=== PATIENT | female | born 1945 | race Caucasian/White ===

== ENCOUNTER 2023-09-24 05:06 | Inpatient (IN) | payer OTHER ==
[~2023-09-24] VITALS: Ht 157.5 cm; Wt 52.6 kg
[2023-09-24 05:15] VITALS: BP 190/104; PULSE 75; RESP 16; TEMP 98.5; O2SAT 95
[2023-09-24] MEDS ORDERED: MORPHINE SULFATE 4 MG/ML SYR IVP ONE (05:20)
[2023-09-24] MEDS ORDERED: ONDANSETRON 4 MG/2 ML VIAL IVP ONE ×2 (05:20→11:30)
[2023-09-24 07:14] LABS: BASOPHILS % (AUTO) 0.1 % (0.0-2.0); EOSINOPHILS % (AUTO) 0.3 % (0.0-4.0); HEMATOCRIT 26.4 % (36-48); HEMOGLOBIN 8.7 g/dL (12.0-16.0); LYMPHOCYTES # (AUTO) 0.6 K/uL (2.5-16.5); LYMPHOCYTES % (AUTO) 8.5 % (20.5-51.1); MEAN CORPUSCULAR HEMOGLOBIN 30 pg (27-31); MEAN CORPUSCULAR HGB CONC 33 g/dL (33-37); MEAN CORPUSCULAR VOLUME 90.1 fL (80-94); MONOCYTES # (AUTO) 0.6 K/uL (0.8-1.0); MONOCYTES % (AUTO) 8.5 % (1.7-9.3); NEUTROPHILS % (AUTO) 82.6 % (42.2-75.2); PLATELET COUNT (AUTO) 236 K/uL (140-450); RED BLOOD CELL COUNT(AUTO) 2.92 MIL/uL (4.20-5.40); RED CELL DISTRIBUTION WIDTH 13.8 % (11.6-13.7); WHITE BLOOD COUNT (AUTO) 7.3 K/uL (4.8-10.8)
[2023-09-24 08:00] LABS: ALANINE AMINOTRANSFERASE 14 U/L (12-78); ALBUMIN 2.6 g/dL (3.4-5.0); ALKALINE PHOSPHATASE 86 U/L (50-136); ANION GAP 14.3 (8-16); ASPARTATE AMINOTRANSFERASE 15 U/L (15-37); CALCIUM 7.8 mg/dL (8.5-10.1); CARBON DIOXIDE 27.1 mmol/L (21-32); CHLORIDE 100 mmol/L (98-107); CREATININE 0.9 mg/dL (0.6-1.3); GLUCOSE 144 mg/dL (74-106); LIPASE 23 U/L (16-77); POTASSIUM 3.4 mmol/L (3.5-5.1); SODIUM SERUM 138 mmol/L (136-145); TOTAL BILIRUBIN 0.4 mg/dL (0.0-1.0); TOTAL PROTEIN, SERUM 7.1 g/dL (6.4-8.2); UREA NITROGEN, BLOOD 18 mg/dL (7-18)
[2023-09-24 11:20] LABS: BILIRUBIN,URINE NEGATIVE (NEGATIVE); BLOOD, URINE 2+ (NEGATIVE); COLOR,URINE YELLOW (YELLOW); LEUKOCYTE ESTERASE ,URINE NEGATIVE (NEGATIVE); NITRITE, URINE POSITIVE (NEGATIVE); PH,URINE 6.5 (5.0-9.0); PROTEIN,URINE 2+ (NEGATIVE); UGLUCOSE NEGATIVE (NEGATIVE); UROBILINOGEN,URINE 0.2 EU/dL (0.2 - 1)
[2023-09-24 11:25] LABS: APPEARANCE,URINE HAZY (CLEAR)
[2023-09-24 11:26] LABS: BACTERIA,URINE 1+ /HPF (None Seen); RBC,URINE 20-50 /HPF (0-5); SQUAMOUS EPITHELIAL CELL,UR 0-3 (FEW) /LPF (0-3 (FEW)); WBC,URINE 0-5 /HPF (0-5)
[2023-09-24 11:27] LABS: URINE AMORPHOUS URATE 1+ /HPF (None Seen)
[2023-09-24] MEDS ORDERED: MORPHINE SULFATE 2 MG/ML SYR IVP ONE (11:30)
[2023-09-24] MEDS ORDERED: ONDANSETRON 4 MG/2 ML VIAL ONE (11:30)
[2023-09-24] MEDS: LACTATED RINGERS 1,000 ML IV SCH (11:40)
[2023-09-24 11:50] VITALS: O2SAT 95
[2023-09-24] MEDS: PIPERACILLIN/TAZOBACTAM 2.25 GM in DEXTROSE 5% 50 ML IV SCH ×2 (12:06→21:20)
[2023-09-24] MEDS ORDERED: METOPROLOL 5 MG/5 ML VIAL IVP ONE (12:40)
[2023-09-24] MEDS ORDERED: PIPERACILLIN/TAZOBACTAM 3.375 GM in DEXTROSE 5% 50 ML IV SCH (13:00)
[2023-09-24] MEDS ORDERED: PIPERACILLIN/TAZOBACTAM 2.25 GM VIAL IV ONE ×2 (13:09→20:18)
[2023-09-24] MEDS: MORPHINE SULFATE 4 MG/ML SYR IVP PRN (13:12)
[2023-09-24] MEDS: ONDANSETRON 4 MG/2 ML VIAL IVP PRN (13:13)
[2023-09-24] MEDS ORDERED: DULO60EC1 PO (13:54)
[2023-09-24] MEDS ORDERED: CARV12.5 PO (13:54)
[2023-09-24] MEDS ORDERED: ASCO500T95 PO (13:54)
[2023-09-24] MEDS ORDERED: LOSA-272 PO (13:54)
[2023-09-24] MEDS ORDERED: INSU100S22 SUBQ (13:54)
[2023-09-24] MEDS ORDERED: HYDR-1098 PO (13:54)
[2023-09-24] MEDS ORDERED: HYDR200T65 PO (13:54)
[2023-09-24] MEDS ORDERED: APIX2.5 PO (13:54)
[2023-09-24] MEDS ORDERED: PRAV10TA4 PO (13:54)
[2023-09-24] MEDS ORDERED: NIFE60TE5 PO (13:54)
[2023-09-24] MEDS ORDERED: ASPI-1129 PO (13:54)
[2023-09-24] MEDS ORDERED: hydrALAZINE 25 MG TAB PO SCH ×2 (16:47→21:00)
[2023-09-24] MEDS ORDERED: carvediloL 12.5 MG TAB PO SCH ×2 (16:47→21:00)
[2023-09-24] MEDS ORDERED: NIFEdipine 60 MG TABER PO SCH (16:48)
[2023-09-24] MEDS: MORPHINE SULFATE 2 MG/ML SYR IVP PRN (16:50)
[2023-09-24 20:03] VITALS: O2SAT 96
[2023-09-24] MEDS: ACETAMINOPHEN 325 MG TAB PO PRN (20:13)
[2023-09-24] MEDS: CLONIDINE HYDROCHLORIDE 0.1 MG TAB PO PRN (20:14)
[2023-09-24 21:30] VITALS: BP 165/83; PULSE 87; RESP 18; TEMP 98.3; O2SAT 98
[2023-09-24] MEDS: LOSARTAN 50 MG TAB PO SCH (23:01)
[2023-09-24] MEDS: hydrALAZINE 25 MG TAB PO SCH (23:01)
[2023-09-24] MEDS: INSULIN LANTUS 100 UNITS/ML 10 ML VIAL SUBQ SCH (23:02)
[2023-09-25] VITALS: BP 125/66; PULSE 72; RESP 18; TEMP 98; O2SAT 99
[2023-09-25] MEDS ORDERED: PIPERACILLIN/TAZOBACTAM 2.25 GM VIAL IV ONE ×2 (00:37→04:40)
[2023-09-25] MEDS: PIPERACILLIN/TAZOBACTAM 2.25 GM in DEXTROSE 5% 50 ML IV SCH ×5 (00:45→23:37)
[2023-09-25] MEDS: LACTATED RINGERS 1,000 ML IV SCH ×2 (01:04→09:11)
[2023-09-25] MEDS: ONDANSETRON 4 MG/2 ML VIAL IVP PRN (02:39)
[2023-09-25] MEDS: MORPHINE SULFATE 2 MG/ML SYR IVP PRN ×3 (02:39→18:16)
[2023-09-25 04:00] VITALS: BP 168/82; PULSE 74; RESP 18; TEMP 98; O2SAT 100
[2023-09-25] MEDS: CLONIDINE HYDROCHLORIDE 0.1 MG TAB PO PRN (05:43)
[2023-09-25] MEDS: ACETAMINOPHEN 325 MG TAB PO PRN ×2 (05:44→20:45)
[2023-09-25 08:00] VITALS: BP 123/62; PULSE 68; RESP 17; TEMP 96.9; O2SAT 99
[2023-09-25 08:11] LABS: BASOPHILS % (AUTO) 0.2 % (0.0-2.0); EOSINOPHILS % (AUTO) 0.8 % (0.0-4.0); HEMATOCRIT 23.7 % (36-48); HEMOGLOBIN 7.9 g/dL (12.0-16.0); LYMPHOCYTES # (AUTO) 0.8 K/uL (2.5-16.5); LYMPHOCYTES % (AUTO) 13.4 % (20.5-51.1); MEAN CORPUSCULAR HEMOGLOBIN 30 pg (27-31); MEAN CORPUSCULAR HGB CONC 33 g/dL (33-37); MEAN CORPUSCULAR VOLUME 89.9 fL (80-94); MONOCYTES # (AUTO) 0.6 K/uL (0.8-1.0); MONOCYTES % (AUTO) 10.1 % (1.7-9.3); NEUTROPHILS # (AUTO) 4.2 K/uL (1.8-7.7); NEUTROPHILS % (AUTO) 75.5 % (42.2-75.2); PLATELET COUNT (AUTO) 240 K/uL (140-450); RED BLOOD CELL COUNT(AUTO) 2.64 MIL/uL (4.20-5.40); WHITE BLOOD COUNT (AUTO) 5.6 K/uL (4.8-10.8)
[2023-09-25 08:15] LABS: ALANINE AMINOTRANSFERASE 14 U/L (12-78); ALBUMIN 2.2 g/dL (3.4-5.0); ALKALINE PHOSPHATASE 78 U/L (50-136); ANION GAP 11.1 (8-16); ASPARTATE AMINOTRANSFERASE 13 U/L (15-37); CALCIUM 7.4 mg/dL (8.5-10.1); CARBON DIOXIDE 29.6 mmol/L (21-32); CHLORIDE 102 mmol/L (98-107); GLUCOSE 154 mg/dL (74-106); POTASSIUM 3.7 mmol/L (3.5-5.1); SODIUM SERUM 139 mmol/L (136-145); TOTAL BILIRUBIN 0.4 mg/dL (0.0-1.0); TOTAL PROTEIN, SERUM 6.6 g/dL (6.4-8.2); UREA NITROGEN, BLOOD 16 mg/dL (7-18)
[2023-09-25] MEDS: ASPIRIN 81 MG TAB.CHEW PO SCH (08:56)
[2023-09-25] MEDS: NIFEdipine 60 MG TABER PO SCH (08:56)
[2023-09-25] MEDS: hydrALAZINE 25 MG TAB PO SCH ×2 (08:56→22:03)
[2023-09-25] MEDS: carvediloL 12.5 MG TAB PO SCH (08:57)
[2023-09-25] MEDS: LOSARTAN 50 MG TAB PO SCH ×2 (08:57→22:02)
[2023-09-25] MEDS: HYDROXYCHLOROQUINE 200 MG TAB PO SCH (08:57)
[2023-09-25] MEDS: ENOXAPARIN 40 MG/0.4 ML SYR SUBQ SCH (09:00)
[2023-09-25] MEDS ORDERED: ASPIRIN 81 MG TAB.CHEW PO SCH (09:00)
[2023-09-25] MEDS: MORPHINE SULFATE 4 MG/ML SYR IVP PRN ×2 (12:08→22:26)
[2023-09-25 16:00] VITALS: BP 123/79; PULSE 79; RESP 17; TEMP 97.7; O2SAT 98
[2023-09-25] MEDS ORDERED: DEXTROSE 50% 50 ML SYR IVP PRN (16:20)
[2023-09-25] MEDS: BLOOD GLUCOSE MONITORING 1 DEV DEV FS SCH ×2 (16:30→21:00)
[2023-09-25] MEDS: INSULIN LISPRO SLIDING SCALE 100 UNITS/ML VIAL SUBQ PRN (18:16)
[2023-09-25 20:00] VITALS: PULSE 79; RESP 18; O2SAT 99
[2023-09-25] MEDS: INSULIN LANTUS 100 UNITS/ML 10 ML VIAL SUBQ SCH (21:00)
[2023-09-26 02:05] VITALS: BP 141/79; PULSE 77; RESP 18; TEMP 97.8; O2SAT 98
[2023-09-26] MEDS: HYDROmorphone 1 MG/ML AMP IVP PRN ×2 (02:18→10:14)
[2023-09-26] MEDS: LACTATED RINGERS 1,000 ML IV SCH (03:40)
[2023-09-26] MEDS: MORPHINE SULFATE 4 MG/ML SYR IVP PRN (05:41)
[2023-09-26] MEDS: PIPERACILLIN/TAZOBACTAM 2.25 GM in DEXTROSE 5% 50 ML IV SCH ×3 (06:11→18:33)
[2023-09-26] MEDS: ACETAMINOPHEN 325 MG TAB PO PRN (06:22)
[2023-09-26] MEDS: BLOOD GLUCOSE MONITORING 1 DEV DEV FS SCH ×4 (06:29→22:15)
[2023-09-26] MEDS: INSULIN LISPRO SLIDING SCALE 100 UNITS/ML VIAL SUBQ PRN ×3 (06:32→22:21)
[2023-09-26 07:01] LABS: BASOPHILS % (AUTO) 0.2 % (0.0-2.0); EOSINOPHILS % (AUTO) 0.7 % (0.0-4.0); HEMATOCRIT 26.2 % (36-48); HEMOGLOBIN 8.6 g/dL (12.0-16.0); LYMPHOCYTES # (AUTO) 0.9 K/uL (2.5-16.5); LYMPHOCYTES % (AUTO) 12.5 % (20.5-51.1); MEAN CORPUSCULAR HEMOGLOBIN 29 pg (27-31); MEAN CORPUSCULAR HGB CONC 33 g/dL (33-37); MEAN CORPUSCULAR VOLUME 89.7 fL (80-94); MONOCYTES # (AUTO) 0.5 K/uL (0.8-1.0); NEUTROPHILS # (AUTO) 5.5 K/uL (1.8-7.7); NEUTROPHILS % (AUTO) 79.6 % (42.2-75.2); PLATELET COUNT (AUTO) 273 K/uL (140-450); RED BLOOD CELL COUNT(AUTO) 2.92 MIL/uL (4.20-5.40); RED CELL DISTRIBUTION WIDTH 14.3 % (11.6-13.7); WHITE BLOOD COUNT (AUTO) 6.9 K/uL (4.8-10.8)
[2023-09-26 07:26] LABS: ALANINE AMINOTRANSFERASE 13 U/L (12-78); ALBUMIN 2.4 g/dL (3.4-5.0); ALKALINE PHOSPHATASE 89 U/L (50-136); ANION GAP 12.4 (8-16); ASPARTATE AMINOTRANSFERASE 14 U/L (15-37); CARBON DIOXIDE 29.3 mmol/L (21-32); CHLORIDE 101 mmol/L (98-107); GLUCOSE 179 mg/dL (74-106); POTASSIUM 3.7 mmol/L (3.5-5.1); SODIUM SERUM 139 mmol/L (136-145); TOTAL BILIRUBIN 0.4 mg/dL (0.0-1.0); TOTAL PROTEIN, SERUM 7.2 g/dL (6.4-8.2); UREA NITROGEN, BLOOD 15 mg/dL (7-18)
[2023-09-26 08:00] VITALS: BP 170/77; PULSE 76; RESP 17; TEMP 98.6; O2SAT 99
[2023-09-26] MEDS: hydrALAZINE 25 MG TAB PO SCH ×2 (08:54→22:23)
[2023-09-26] MEDS: carvediloL 12.5 MG TAB PO SCH (08:54)
[2023-09-26] MEDS: ASPIRIN 81 MG TAB.CHEW PO SCH (08:55)
[2023-09-26] MEDS: LOSARTAN 50 MG TAB PO SCH ×2 (08:55→09:26)
[2023-09-26] MEDS: NIFEdipine 60 MG TABER PO SCH (08:55)
[2023-09-26] MEDS: ENOXAPARIN 40 MG/0.4 ML SYR SUBQ SCH (09:01)
[2023-09-26] MEDS: HYDROXYCHLOROQUINE 200 MG TAB PO SCH (09:27)
[2023-09-26 10:30] VITALS: BP 152/69; PULSE 84; RESP 18; TEMP 98.2; O2SAT 98
[2023-09-26] MEDS: oxyCODONE/APAP 5/325 MG 1 TAB TAB PO PRN (13:17)
[2023-09-26 13:21] VITALS: BP 125/59; PULSE 82; RESP 18; TEMP 98.5; O2SAT 99
[2023-09-26] MEDS ORDERED: COMPOSITE DRESSING TP PRN (14:25)
[2023-09-26 16:00] VITALS: BP 101/62; PULSE 88; RESP 18; TEMP 98.9; O2SAT 97
[2023-09-26] MEDS: KETOROLAC 30 MG/ML VIAL IVP PRN ×2 (17:29→23:10)
[2023-09-26 20:00] VITALS: BP 128/81; PULSE 81; RESP 18; TEMP 98; O2SAT 98
[2023-09-26] MEDS: DOCUSATE SODIUM 100 MG GELCAP PO SCH (21:08)
[2023-09-26] MEDS: INSULIN LANTUS 100 UNITS/ML 10 ML VIAL SUBQ SCH (22:31)
[2023-09-27] MEDS: PIPERACILLIN/TAZOBACTAM 2.25 GM in DEXTROSE 5% 50 ML IV SCH ×4 (01:12→18:03)
[2023-09-27 04:00] VITALS: BP 122/58; PULSE 84; RESP 18; TEMP 98.3; O2SAT 99
[2023-09-27] MEDS: KETOROLAC 30 MG/ML VIAL IVP PRN ×2 (05:29→20:08)
[2023-09-27] MEDS: BLOOD GLUCOSE MONITORING 1 DEV DEV FS SCH ×4 (07:22→20:21)
[2023-09-27] MEDS: INSULIN LISPRO SLIDING SCALE 100 UNITS/ML VIAL SUBQ PRN ×4 (07:25→20:24)
[2023-09-27 07:28] LABS: BASOPHILS % (AUTO) 0.3 % (0.0-2.0); EOSINOPHILS # (AUTO) 0.1 K/uL (0-0.4); EOSINOPHILS % (AUTO) 1.2 % (0.0-4.0); HEMATOCRIT 24.4 % (36-48); HEMOGLOBIN 8.1 g/dL (12.0-16.0); LYMPHOCYTES # (AUTO) 0.7 K/uL (2.5-16.5); LYMPHOCYTES % (AUTO) 11.7 % (20.5-51.1); MEAN CORPUSCULAR HEMOGLOBIN 30 pg (27-31); MEAN CORPUSCULAR HGB CONC 33 g/dL (33-37); MEAN CORPUSCULAR VOLUME 89.9 fL (80-94); MONOCYTES # (AUTO) 0.4 K/uL (0.8-1.0); MONOCYTES % (AUTO) 5.9 % (1.7-9.3); NEUTROPHILS % (AUTO) 80.9 % (42.2-75.2); PLATELET COUNT (AUTO) 267 K/uL (140-450); RED BLOOD CELL COUNT(AUTO) 2.71 MIL/uL (4.20-5.40); WHITE BLOOD COUNT (AUTO) 6.1 K/uL (4.8-10.8)
[2023-09-27 08:00] VITALS: BP 134/61; PULSE 79; RESP 18; TEMP 98.1; O2SAT 96
[2023-09-27 08:24] LABS: ALANINE AMINOTRANSFERASE 8 U/L (12-78); ALBUMIN 2.1 g/dL (3.4-5.0); ALKALINE PHOSPHATASE 86 U/L (50-136); ANION GAP 11.5 (8-16); ASPARTATE AMINOTRANSFERASE 10 U/L (15-37); CALCIUM 8.1 mg/dL (8.5-10.1); CARBON DIOXIDE 29.8 mmol/L (21-32); CHLORIDE 101 mmol/L (98-107); GLUCOSE 159 mg/dL (74-106); POTASSIUM 3.3 mmol/L (3.5-5.1); SODIUM SERUM 139 mmol/L (136-145); TOTAL BILIRUBIN 0.3 mg/dL (0.0-1.0); TOTAL PROTEIN, SERUM 6.7 g/dL (6.4-8.2); UREA NITROGEN, BLOOD 21 mg/dL (7-18)
[2023-09-27] MEDS ORDERED: POTASSIUM CHLORIDE 10 MEQ TABER PO PRN (08:50)
[2023-09-27] MEDS: hydrALAZINE 25 MG TAB PO SCH ×2 (09:51→20:28)
[2023-09-27] MEDS: ASPIRIN 81 MG TAB.CHEW PO SCH (09:51)
[2023-09-27] MEDS: NIFEdipine 60 MG TABER PO SCH (09:51)
[2023-09-27] MEDS: carvediloL 12.5 MG TAB PO SCH (09:52)
[2023-09-27] MEDS: DOCUSATE SODIUM 100 MG GELCAP PO SCH ×2 (09:52→20:18)
[2023-09-27] MEDS: LOSARTAN 50 MG TAB PO SCH ×2 (09:52→20:29)
[2023-09-27] MEDS: HYDROXYCHLOROQUINE 200 MG TAB PO SCH (09:57)
[2023-09-27] MEDS: ENOXAPARIN 40 MG/0.4 ML SYR SUBQ SCH (09:58)
[2023-09-27] MEDS: oxyCODONE/APAP 5/325 MG 1 TAB TAB PO PRN ×2 (10:46→16:54)
[2023-09-27] MEDS: HYDROmorphone 1 MG/ML AMP IVP PRN (11:56)
[2023-09-27 13:36] LABS: APPEARANCE,URINE CLEAR (CLEAR); BILIRUBIN,URINE NEGATIVE (NEGATIVE); BLOOD, URINE TRACE-I (NEGATIVE); COLOR,URINE YELLOW (YELLOW); LEUKOCYTE ESTERASE ,URINE NEGATIVE (NEGATIVE); NITRITE, URINE POSITIVE (NEGATIVE); PH,URINE 5.5 (5.0-9.0); PROTEIN,URINE 2+ (NEGATIVE); UGLUCOSE NEGATIVE (NEGATIVE); UROBILINOGEN,URINE 0.2 EU/dL (0.2 - 1)
[2023-09-27] MEDS: COMPOSITE DRESSING TP SCH (13:57)
[2023-09-27 14:03] LABS: BACTERIA,URINE 1+ /HPF (None Seen); RBC,URINE 0-5 /HPF (0-5); WBC,URINE 0-5 /HPF (0-5)
[2023-09-27 16:00] VITALS: BP 114/58; PULSE 78; RESP 18; TEMP 97.3; O2SAT 96
[2023-09-27 20:00] VITALS: PULSE 73; RESP 17; O2SAT 96
[2023-09-27] MEDS: INSULIN LANTUS 100 UNITS/ML 10 ML VIAL SUBQ SCH (20:25)
[2023-09-28] MEDS: PIPERACILLIN/TAZOBACTAM 2.25 GM in DEXTROSE 5% 50 ML IV SCH ×4 (00:21→17:20)
[2023-09-28] MEDS: MORPHINE SULFATE 4 MG/ML SYR IVP PRN ×2 (01:46→08:46)
[2023-09-28 04:00] VITALS: BP 110/60; PULSE 77; RESP 18; TEMP 97.6; O2SAT 97
[2023-09-28] MEDS: HYDROmorphone 1 MG/ML AMP IVP PRN ×5 (04:15→22:00)
[2023-09-28 06:42] LABS: BASOPHILS % (AUTO) 0.1 % (0.0-2.0); EOSINOPHILS # (AUTO) 0.1 K/uL (0-0.4); HEMATOCRIT 23.1 % (36-48); HEMOGLOBIN 7.7 g/dL (12.0-16.0); LYMPHOCYTES # (AUTO) 0.8 K/uL (2.5-16.5); LYMPHOCYTES % (AUTO) 13.7 % (20.5-51.1); MEAN CORPUSCULAR HEMOGLOBIN 30 pg (27-31); MEAN CORPUSCULAR HGB CONC 33 g/dL (33-37); MEAN CORPUSCULAR VOLUME 89.4 fL (80-94); MONOCYTES # (AUTO) 0.4 K/uL (0.8-1.0); NEUTROPHILS # (AUTO) 4.3 K/uL (1.8-7.7); NEUTROPHILS % (AUTO) 77.2 % (42.2-75.2); PLATELET COUNT (AUTO) 258 K/uL (140-450); RED BLOOD CELL COUNT(AUTO) 2.59 MIL/uL (4.20-5.40); RED CELL DISTRIBUTION WIDTH 14.3 % (11.6-13.7); WHITE BLOOD COUNT (AUTO) 5.5 K/uL (4.8-10.8)
[2023-09-28] MEDS: BLOOD GLUCOSE MONITORING 1 DEV DEV FS SCH ×4 (06:43→21:58)
[2023-09-28 08:00] VITALS: PULSE 73; RESP 17; O2SAT 96
[2023-09-28 08:21] LABS: ANION GAP 13.1 (8-16); CALCIUM 7.6 mg/dL (8.5-10.1); CARBON DIOXIDE 28.8 mmol/L (21-32); CHLORIDE 104 mmol/L (98-107); CREATININE 1.1 mg/dL (0.6-1.3); GLUCOSE 117 mg/dL (74-106); POTASSIUM 3.9 mmol/L (3.5-5.1); SODIUM SERUM 142 mmol/L (136-145); UREA NITROGEN, BLOOD 25 mg/dL (7-18)
[2023-09-28] MEDS: hydrALAZINE 25 MG TAB PO SCH ×2 (10:04→22:08)
[2023-09-28] MEDS: NIFEdipine 60 MG TABER PO SCH (10:04)
[2023-09-28] MEDS: DOCUSATE SODIUM 100 MG GELCAP PO SCH ×2 (10:04→22:08)
[2023-09-28] MEDS: carvediloL 12.5 MG TAB PO SCH (10:06)
[2023-09-28] MEDS: LOSARTAN 50 MG TAB PO SCH ×2 (10:06→22:09)
[2023-09-28] MEDS: HYDROXYCHLOROQUINE 200 MG TAB PO SCH (10:06)
[2023-09-28] MEDS: ASPIRIN 81 MG TAB.CHEW PO SCH (10:08)
[2023-09-28] MEDS: ENOXAPARIN 40 MG/0.4 ML SYR SUBQ SCH (10:10)
[2023-09-28] MEDS: oxyCODONE/APAP 5/325 MG 1 TAB TAB PO PRN ×2 (11:46→18:57)
[2023-09-28] MEDS: KETOROLAC 30 MG/ML VIAL IVP PRN (11:46)
[2023-09-28 12:00] VITALS: BP 152/70; PULSE 73; RESP 17; TEMP 97.6; O2SAT 96
[2023-09-28] MEDS: COMPOSITE DRESSING TP SCH (13:00)
[2023-09-28 15:11] LABS: ALANINE AMINOTRANSFERASE 14 U/L (12-78); ALKALINE PHOSPHATASE 110 U/L (50-136); ANION GAP 10.7 (8-16); ASPARTATE AMINOTRANSFERASE 15 U/L (15-37); CALCIUM 7.5 mg/dL (8.5-10.1); CHLORIDE 103 mmol/L (98-107); CREATININE 1.1 mg/dL (0.6-1.3); GLUCOSE 186 mg/dL (74-106); POTASSIUM 3.7 mmol/L (3.5-5.1); SODIUM SERUM 140 mmol/L (136-145); TOTAL BILIRUBIN 0.3 mg/dL (0.0-1.0); TOTAL PROTEIN, SERUM 6.4 g/dL (6.4-8.2); UREA NITROGEN, BLOOD 22 mg/dL (7-18)
[2023-09-28] MEDS: INSULIN LISPRO SLIDING SCALE 100 UNITS/ML VIAL SUBQ PRN ×2 (19:06→22:20)
[2023-09-28 20:00] VITALS: BP 166/82; PULSE 73; PULSE 77; RESP 18; TEMP 97.4; O2SAT 100
[2023-09-28] MEDS: LACTULOSE 20 GM/30 ML UDC PO SCH (22:05)
[2023-09-28] MEDS: INSULIN LANTUS 100 UNITS/ML 10 ML VIAL SUBQ SCH (22:21)
[2023-09-28] MEDS: ONDANSETRON 4 MG/2 ML VIAL IVP PRN (22:31)
[2023-09-29] VITALS (7 sets, daily range): BP systolic 120–167; BP diastolic 68–89; PULSE 78–97; RESP 17–18; TEMP 97.4–98.1; O2SAT 94–100
[2023-09-29] MEDS: HYDROmorphone 1 MG/ML AMP IVP PRN ×6 (03:10→20:56)
[2023-09-29] MEDS: ONDANSETRON 4 MG/2 ML VIAL IVP PRN (03:11)
[2023-09-29] MEDS: BLOOD GLUCOSE MONITORING 1 DEV DEV FS SCH ×4 (06:45→20:48)
[2023-09-29 07:23] LABS: BASOPHILS % (AUTO) 0.2 % (0.0-2.0); EOSINOPHILS # (AUTO) 0.1 K/uL (0-0.4); EOSINOPHILS % (AUTO) 1.7 % (0.0-4.0); HEMATOCRIT 24.9 % (36-48); HEMOGLOBIN 8.1 g/dL (12.0-16.0); LYMPHOCYTES # (AUTO) 0.8 K/uL (2.5-16.5); MEAN CORPUSCULAR HEMOGLOBIN 29 pg (27-31); MEAN CORPUSCULAR HGB CONC 32 g/dL (33-37); MEAN CORPUSCULAR VOLUME 89.3 fL (80-94); MONOCYTES # (AUTO) 0.6 K/uL (0.8-1.0); NEUTROPHILS # (AUTO) 5.2 K/uL (1.8-7.7); NEUTROPHILS % (AUTO) 77.1 % (42.2-75.2); PLATELET COUNT (AUTO) 307 K/uL (140-450); RED BLOOD CELL COUNT(AUTO) 2.79 MIL/uL (4.20-5.40); RED CELL DISTRIBUTION WIDTH 14.6 % (11.6-13.7); WHITE BLOOD COUNT (AUTO) 6.8 K/uL (4.8-10.8)
[2023-09-29] MEDS: ASPIRIN 81 MG TAB.CHEW PO SCH (08:17)
[2023-09-29] MEDS: DOCUSATE SODIUM 100 MG GELCAP PO SCH ×2 (08:18→20:58)
[2023-09-29] MEDS: hydrALAZINE 25 MG TAB PO SCH ×2 (08:18→20:48)
[2023-09-29] MEDS: LOSARTAN 50 MG TAB PO SCH ×2 (08:18→20:48)
[2023-09-29] MEDS: LACTULOSE 20 GM/30 ML UDC PO SCH ×2 (08:19→20:58)
[2023-09-29] MEDS: carvediloL 12.5 MG TAB PO SCH (08:19)
[2023-09-29] MEDS: NIFEdipine 60 MG TABER PO SCH (08:19)
[2023-09-29] MEDS: ENOXAPARIN 40 MG/0.4 ML SYR SUBQ SCH (08:21)
[2023-09-29] MEDS: HYDROXYCHLOROQUINE 200 MG TAB PO SCH (09:20)
[2023-09-29] MEDS: KETOROLAC 30 MG/ML VIAL IVP PRN ×2 (09:37→17:59)
[2023-09-29] MEDS: COMPOSITE DRESSING TP SCH (12:20)
[2023-09-29 15:41] LABS: ALANINE AMINOTRANSFERASE 15 U/L (12-78); ALBUMIN 2.2 g/dL (3.4-5.0); ALKALINE PHOSPHATASE 131 U/L (50-136); ANION GAP 9.6 (8-16); ASPARTATE AMINOTRANSFERASE 15 U/L (15-37); CALCIUM 8.2 mg/dL (8.5-10.1); CARBON DIOXIDE 32.3 mmol/L (21-32); CHLORIDE 103 mmol/L (98-107); GLUCOSE 171 mg/dL (74-106); POTASSIUM 3.9 mmol/L (3.5-5.1); SODIUM SERUM 141 mmol/L (136-145); TOTAL BILIRUBIN 0.3 mg/dL (0.0-1.0); TOTAL PROTEIN, SERUM 6.9 g/dL (6.4-8.2); UREA NITROGEN, BLOOD 14 mg/dL (7-18)
[2023-09-29] MEDS: INSULIN LISPRO SLIDING SCALE 100 UNITS/ML VIAL SUBQ PRN ×2 (15:57→20:52)
[2023-09-29] MEDS: CLONIDINE HYDROCHLORIDE 0.1 MG TAB PO PRN (16:07)
[2023-09-29] MEDS: INSULIN LANTUS 100 UNITS/ML 10 ML VIAL SUBQ SCH (20:51)
[2023-09-30] MEDS: KETOROLAC 30 MG/ML VIAL IVP PRN ×2 (00:40→06:45)
[2023-09-30] MEDS: HYDROmorphone 1 MG/ML AMP IVP PRN ×5 (03:35→22:45)
[2023-09-30 04:00] VITALS: BP 152/73; PULSE 84; RESP 17; TEMP 97.2; O2SAT 97
[2023-09-30] MEDS: BLOOD GLUCOSE MONITORING 1 DEV DEV FS SCH ×4 (06:43→20:14)
[2023-09-30 07:09] LABS: BASOPHILS % (AUTO) 0.4 % (0.0-2.0); EOSINOPHILS # (AUTO) 0.1 K/uL (0-0.4); EOSINOPHILS % (AUTO) 1.4 % (0.0-4.0); HEMATOCRIT 22.6 % (36-48); HEMOGLOBIN 7.5 g/dL (12.0-16.0); LYMPHOCYTES % (AUTO) 18.1 % (20.5-51.1); MEAN CORPUSCULAR HEMOGLOBIN 30 pg (27-31); MEAN CORPUSCULAR HGB CONC 33 g/dL (33-37); MEAN CORPUSCULAR VOLUME 89.6 fL (80-94); MONOCYTES # (AUTO) 0.5 K/uL (0.8-1.0); MONOCYTES % (AUTO) 9.8 % (1.7-9.3); NEUTROPHILS # (AUTO) 3.9 K/uL (1.8-7.7); NEUTROPHILS % (AUTO) 70.3 % (42.2-75.2); PLATELET COUNT (AUTO) 282 K/uL (140-450); RED BLOOD CELL COUNT(AUTO) 2.52 MIL/uL (4.20-5.40); RED CELL DISTRIBUTION WIDTH 14.3 % (11.6-13.7); WHITE BLOOD COUNT (AUTO) 5.5 K/uL (4.8-10.8)
[2023-09-30 08:00] VITALS: BP 178/83; PULSE 79; RESP 16; TEMP 97.6; O2SAT 98
[2023-09-30 08:04] LABS: ALANINE AMINOTRANSFERASE 14 U/L (12-78); ALKALINE PHOSPHATASE 114 U/L (50-136); ANION GAP 10.2 (8-16); ASPARTATE AMINOTRANSFERASE 15 U/L (15-37); CARBON DIOXIDE 30.9 mmol/L (21-32); CHLORIDE 104 mmol/L (98-107); CREATININE 0.9 mg/dL (0.6-1.3); GLUCOSE 88 mg/dL (74-106); POTASSIUM 4.1 mmol/L (3.5-5.1); SODIUM SERUM 141 mmol/L (136-145); TOTAL BILIRUBIN 0.3 mg/dL (0.0-1.0); TOTAL PROTEIN, SERUM 6.4 g/dL (6.4-8.2); UREA NITROGEN, BLOOD 15 mg/dL (7-18)
[2023-09-30 08:06] VITALS: PULSE 72; RESP 19; O2SAT 99
[2023-09-30] MEDS: ASPIRIN 81 MG TAB.CHEW PO SCH (09:14)
[2023-09-30] MEDS: NIFEdipine 60 MG TABER PO SCH (09:14)
[2023-09-30] MEDS: HYDROXYCHLOROQUINE 200 MG TAB PO SCH (09:14)
[2023-09-30] MEDS: LOSARTAN 50 MG TAB PO SCH ×2 (09:14→20:15)
[2023-09-30] MEDS: hydrALAZINE 25 MG TAB PO SCH ×2 (09:15→20:15)
[2023-09-30] MEDS: DOCUSATE SODIUM 100 MG GELCAP PO SCH ×2 (09:15→20:15)
[2023-09-30] MEDS: LACTULOSE 20 GM/30 ML UDC PO SCH ×2 (09:15→20:14)
[2023-09-30] MEDS: carvediloL 12.5 MG TAB PO SCH (09:16)
[2023-09-30] MEDS: ENOXAPARIN 40 MG/0.4 ML SYR SUBQ SCH (09:34)
[2023-09-30] MEDS: COMPOSITE DRESSING TP SCH (13:00)
[2023-09-30 16:00] VITALS: BP 152/73; PULSE 84; RESP 17; TEMP 97.2; O2SAT 97
[2023-09-30] MEDS: INSULIN LISPRO SLIDING SCALE 100 UNITS/ML VIAL SUBQ PRN ×2 (17:27→20:17)
[2023-09-30 20:00] VITALS: BP 169/79; PULSE 85; RESP 17; TEMP 97.7; O2SAT 97
[2023-09-30] MEDS: INSULIN LANTUS 100 UNITS/ML 10 ML VIAL SUBQ SCH (20:17)
[2023-10-01 00:15] VITALS: BP 148/79
[2023-10-01] MEDS: KETOROLAC 30 MG/ML VIAL IVP PRN ×2 (01:34→13:39)
[2023-10-01] MEDS: HYDROmorphone 1 MG/ML AMP IVP PRN ×4 (03:40→22:20)
[2023-10-01 04:00] VITALS: BP 139/66; PULSE 85; RESP 17; TEMP 97.6; O2SAT 96
[2023-10-01 06:32] LABS: BASOPHILS % (AUTO) 0.3 % (0.0-2.0); EOSINOPHILS # (AUTO) 0.1 K/uL (0-0.4); EOSINOPHILS % (AUTO) 1.3 % (0.0-4.0); HEMATOCRIT 21.8 % (36-48); HEMOGLOBIN 7.1 g/dL (12.0-16.0); LYMPHOCYTES % (AUTO) 18.3 % (20.5-51.1); MEAN CORPUSCULAR HEMOGLOBIN 29 pg (27-31); MEAN CORPUSCULAR HGB CONC 33 g/dL (33-37); MEAN CORPUSCULAR VOLUME 88.9 fL (80-94); MONOCYTES # (AUTO) 0.7 K/uL (0.8-1.0); MONOCYTES % (AUTO) 12.6 % (1.7-9.3); NEUTROPHILS # (AUTO) 3.5 K/uL (1.8-7.7); NEUTROPHILS % (AUTO) 67.5 % (42.2-75.2); PLATELET COUNT (AUTO) 284 K/uL (140-450); RED BLOOD CELL COUNT(AUTO) 2.45 MIL/uL (4.20-5.40); RED CELL DISTRIBUTION WIDTH 14.6 % (11.6-13.7); WHITE BLOOD COUNT (AUTO) 5.2 K/uL (4.8-10.8)
[2023-10-01] MEDS: BLOOD GLUCOSE MONITORING 1 DEV DEV FS SCH ×4 (06:33→22:30)
[2023-10-01] MEDS: INSULIN LISPRO SLIDING SCALE 100 UNITS/ML VIAL SUBQ PRN ×4 (06:34→22:51)
[2023-10-01 07:11] LABS: ALANINE AMINOTRANSFERASE 13 U/L (12-78); ALKALINE PHOSPHATASE 104 U/L (50-136); ANION GAP 12.9 (8-16); ASPARTATE AMINOTRANSFERASE 15 U/L (15-37); CALCIUM 7.8 mg/dL (8.5-10.1); CHLORIDE 103 mmol/L (98-107); CREATININE 0.8 mg/dL (0.6-1.3); GLUCOSE 158 mg/dL (74-106); POTASSIUM 3.9 mmol/L (3.5-5.1); SODIUM SERUM 140 mmol/L (136-145); TOTAL BILIRUBIN 0.3 mg/dL (0.0-1.0); TOTAL PROTEIN, SERUM 6.4 g/dL (6.4-8.2); UREA NITROGEN, BLOOD 4 mg/dL (7-18)
[2023-10-01 08:00] VITALS: PULSE 85; RESP 17; O2SAT 97
[2023-10-01] MEDS: DOCUSATE SODIUM 100 MG GELCAP PO SCH ×2 (09:33→22:33)
[2023-10-01] MEDS: ASPIRIN 81 MG TAB.CHEW PO SCH (09:33)
[2023-10-01] MEDS: hydrALAZINE 25 MG TAB PO SCH ×2 (09:33→22:31)
[2023-10-01] MEDS: HYDROXYCHLOROQUINE 200 MG TAB PO SCH (09:34)
[2023-10-01] MEDS: NIFEdipine 60 MG TABER PO SCH (09:34)
[2023-10-01] MEDS: carvediloL 12.5 MG TAB PO SCH (09:34)
[2023-10-01] MEDS: LOSARTAN 50 MG TAB PO SCH ×2 (09:38→22:34)
[2023-10-01] MEDS: LACTULOSE 20 GM/30 ML UDC PO SCH (09:38)
[2023-10-01] MEDS: ENOXAPARIN 40 MG/0.4 ML SYR SUBQ SCH (09:39)
[2023-10-01 12:00] VITALS: BP 147/76; PULSE 85; RESP 18; TEMP 97.6; O2SAT 97
[2023-10-01] MEDS: COMPOSITE DRESSING TP SCH (13:01)
[2023-10-01] MEDS ORDERED: LACTULOSE 20 GM/30 ML UDC PO PRN (13:30)
[2023-10-01 20:00] VITALS: BP 120/59; PULSE 85; RESP 20; TEMP 97.4; O2SAT 97
[2023-10-01] MEDS ORDERED: DOCUSATE SODIUM 100 MG GELCAP PO ONE (22:11)
[2023-10-01] MEDS: INSULIN LANTUS 100 UNITS/ML 10 ML VIAL SUBQ SCH (22:52)
[2023-10-02] MEDS: KETOROLAC 30 MG/ML VIAL IVP PRN ×3 (02:41→17:27)
[2023-10-02] MEDS: HYDROmorphone 1 MG/ML AMP IVP PRN ×5 (03:44→22:08)
[2023-10-02 04:00] VITALS: BP 154/77; PULSE 82; RESP 20; TEMP 98.4; O2SAT 96
[2023-10-02] MEDS: oxyCODONE/APAP 5/325 MG 1 TAB TAB PO PRN (05:57)
[2023-10-02 07:05] LABS: BASOPHILS % (AUTO) 0.4 % (0.0-2.0); EOSINOPHILS # (AUTO) 0.1 K/uL (0-0.4); EOSINOPHILS % (AUTO) 1.2 % (0.0-4.0); HEMATOCRIT 24.8 % (36-48); HEMOGLOBIN 8.2 g/dL (12.0-16.0); LYMPHOCYTES # (AUTO) 1.3 K/uL (2.5-16.5); MEAN CORPUSCULAR HEMOGLOBIN 29 pg (27-31); MEAN CORPUSCULAR HGB CONC 33 g/dL (33-37); MEAN CORPUSCULAR VOLUME 88.7 fL (80-94); MONOCYTES # (AUTO) 0.6 K/uL (0.8-1.0); MONOCYTES % (AUTO) 10.2 % (1.7-9.3); NEUTROPHILS # (AUTO) 4.3 K/uL (1.8-7.7); NEUTROPHILS % (AUTO) 67.2 % (42.2-75.2); PLATELET COUNT (AUTO) 384 K/uL (140-450); RED CELL DISTRIBUTION WIDTH 14.7 % (11.6-13.7); WHITE BLOOD COUNT (AUTO) 6.4 K/uL (4.8-10.8)
[2023-10-02 07:28] LABS: ALANINE AMINOTRANSFERASE 18 U/L (12-78); ALBUMIN 2.4 g/dL (3.4-5.0); ALKALINE PHOSPHATASE 114 U/L (50-136); ANION GAP 14.6 (8-16); ASPARTATE AMINOTRANSFERASE 19 U/L (15-37); CALCIUM 8.3 mg/dL (8.5-10.1); CARBON DIOXIDE 27.2 mmol/L (21-32); CHLORIDE 102 mmol/L (98-107); CREATININE 1.1 mg/dL (0.6-1.3); GLUCOSE 104 mg/dL (74-106); POTASSIUM 3.8 mmol/L (3.5-5.1); SODIUM SERUM 140 mmol/L (136-145); TOTAL BILIRUBIN 0.3 mg/dL (0.0-1.0); TOTAL PROTEIN, SERUM 7.5 g/dL (6.4-8.2); UREA NITROGEN, BLOOD 13 mg/dL (7-18)
[2023-10-02] MEDS: BLOOD GLUCOSE MONITORING 1 DEV DEV FS SCH ×4 (07:28→20:26)
[2023-10-02 08:00] VITALS: BP 195/97; PULSE 84; RESP 18; TEMP 96.3; O2SAT 100
[2023-10-02] MEDS: ASPIRIN 81 MG TAB.CHEW PO SCH (08:24)
[2023-10-02] MEDS: HYDROXYCHLOROQUINE 200 MG TAB PO SCH (08:25)
[2023-10-02] MEDS: hydrALAZINE 25 MG TAB PO SCH ×2 (08:25→20:26)
[2023-10-02] MEDS: LOSARTAN 50 MG TAB PO SCH ×2 (08:25→20:26)
[2023-10-02] MEDS: carvediloL 12.5 MG TAB PO SCH (08:25)
[2023-10-02] MEDS: NIFEdipine 60 MG TABER PO SCH (08:26)
[2023-10-02] MEDS: ENOXAPARIN 40 MG/0.4 ML SYR SUBQ SCH (08:32)
[2023-10-02 09:30] VITALS: BP 175/83; PULSE 78
[2023-10-02 12:05] VITALS: BP 193/94; PULSE 80
[2023-10-02] MEDS: CLONIDINE HYDROCHLORIDE 0.1 MG TAB PO PRN (12:16)
[2023-10-02] MEDS: COMPOSITE DRESSING TP SCH (13:00)
[2023-10-02] MEDS: INSULIN LISPRO SLIDING SCALE 100 UNITS/ML VIAL SUBQ PRN (17:23)
[2023-10-02] MEDS ORDERED: DOCUSATE SODIUM 100 MG GELCAP PO PRN (19:35)
[2023-10-02 20:00] VITALS: BP 108/57; PULSE 83; RESP 16; TEMP 98.3; O2SAT 97; O2SAT 98
[2023-10-02] MEDS: INSULIN LANTUS 100 UNITS/ML 10 ML VIAL SUBQ SCH (20:27)
[2023-10-03] MEDS: HYDROmorphone 1 MG/ML AMP IVP PRN ×6 (01:56→23:28)
[2023-10-03 04:00] VITALS: BP 148/73; PULSE 79; RESP 16; TEMP 97; O2SAT 98
[2023-10-03] MEDS: oxyCODONE/APAP 5/325 MG 1 TAB TAB PO PRN (04:44)
[2023-10-03] MEDS: BLOOD GLUCOSE MONITORING 1 DEV DEV FS SCH ×4 (06:30→20:37)
[2023-10-03 06:59] LABS: BASOPHILS % (AUTO) 0.4 % (0.0-2.0); EOSINOPHILS # (AUTO) 0.1 K/uL (0-0.4); EOSINOPHILS % (AUTO) 1.4 % (0.0-4.0); HEMATOCRIT 22.1 % (36-48); HEMOGLOBIN 7.4 g/dL (12.0-16.0); LYMPHOCYTES # (AUTO) 0.8 K/uL (2.5-16.5); LYMPHOCYTES % (AUTO) 19.5 % (20.5-51.1); MEAN CORPUSCULAR HEMOGLOBIN 30 pg (27-31); MEAN CORPUSCULAR HGB CONC 34 g/dL (33-37); MEAN CORPUSCULAR VOLUME 88.9 fL (80-94); MONOCYTES # (AUTO) 0.5 K/uL (0.8-1.0); MONOCYTES % (AUTO) 12.3 % (1.7-9.3); NEUTROPHILS # (AUTO) 2.7 K/uL (1.8-7.7); NEUTROPHILS % (AUTO) 66.4 % (42.2-75.2); PLATELET COUNT (AUTO) 310 K/uL (140-450); RED BLOOD CELL COUNT(AUTO) 2.49 MIL/uL (4.20-5.40); RED CELL DISTRIBUTION WIDTH 14.4 % (11.6-13.7)
[2023-10-03 07:14] LABS: ALANINE AMINOTRANSFERASE 16 U/L (12-78); ALBUMIN 2.3 g/dL (3.4-5.0); ALKALINE PHOSPHATASE 101 U/L (50-136); ANION GAP 11.4 (8-16); ASPARTATE AMINOTRANSFERASE 14 U/L (15-37); CARBON DIOXIDE 27.9 mmol/L (21-32); CHLORIDE 104 mmol/L (98-107); CREATININE 1.1 mg/dL (0.6-1.3); GLUCOSE 118 mg/dL (74-106); POTASSIUM 4.3 mmol/L (3.5-5.1); SODIUM SERUM 139 mmol/L (136-145); TOTAL BILIRUBIN 0.3 mg/dL (0.0-1.0); UREA NITROGEN, BLOOD 14 mg/dL (7-18)
[2023-10-03 08:00] VITALS: BP 164/78; PULSE 75; RESP 16; TEMP 97.8; O2SAT 98
[2023-10-03] MEDS: NIFEdipine 60 MG TABER PO SCH (08:01)
[2023-10-03] MEDS: carvediloL 12.5 MG TAB PO SCH (08:01)
[2023-10-03] MEDS: LOSARTAN 50 MG TAB PO SCH ×2 (08:01→20:38)
[2023-10-03] MEDS: hydrALAZINE 25 MG TAB PO SCH ×2 (08:01→20:38)
[2023-10-03] MEDS: ASPIRIN 81 MG TAB.CHEW PO SCH (08:01)
[2023-10-03] MEDS: CLONIDINE HYDROCHLORIDE 0.1 MG TAB PO PRN (08:01)
[2023-10-03] MEDS: HYDROXYCHLOROQUINE 200 MG TAB PO SCH (08:01)
[2023-10-03] MEDS: ENOXAPARIN 40 MG/0.4 ML SYR SUBQ SCH (08:05)
[2023-10-03] MEDS: INSULIN LISPRO SLIDING SCALE 100 UNITS/ML VIAL SUBQ PRN ×2 (12:21→17:12)
[2023-10-03] MEDS: COMPOSITE DRESSING TP SCH (13:00)
[2023-10-03] MEDS: KETOROLAC 15 MG/ML VIAL IVP PRN (15:35)
[2023-10-03 16:00] VITALS: BP 121/56; PULSE 77; RESP 18; TEMP 99; O2SAT 98
[2023-10-03 20:00] VITALS: PULSE 76; RESP 16; O2SAT 97
[2023-10-03] MEDS: INSULIN LANTUS 100 UNITS/ML 10 ML VIAL SUBQ SCH (20:39)
[2023-10-04] MEDS: KETOROLAC 15 MG/ML VIAL IVP PRN ×3 (00:53→14:52)
[2023-10-04 04:00] VITALS: BP 127/65; PULSE 68; RESP 16; TEMP 97.1; O2SAT 97
[2023-10-04] MEDS: HYDROmorphone 1 MG/ML AMP IVP PRN ×3 (04:07→15:55)
[2023-10-04] MEDS: BLOOD GLUCOSE MONITORING 1 DEV DEV FS SCH ×2 (06:31→11:30)
[2023-10-04] MEDS: INSULIN LISPRO SLIDING SCALE 100 UNITS/ML VIAL SUBQ PRN ×2 (06:31→12:40)
[2023-10-04 06:50] LABS: BASOPHILS % (AUTO) 0.3 % (0.0-2.0); EOSINOPHILS # (AUTO) 0.1 K/uL (0-0.4); EOSINOPHILS % (AUTO) 1.5 % (0.0-4.0); HEMATOCRIT 21.9 % (36-48); HEMOGLOBIN 7.2 g/dL (12.0-16.0); LYMPHOCYTES # (AUTO) 0.9 K/uL (2.5-16.5); LYMPHOCYTES % (AUTO) 22.3 % (20.5-51.1); MEAN CORPUSCULAR HEMOGLOBIN 29 pg (27-31); MEAN CORPUSCULAR HGB CONC 33 g/dL (33-37); MEAN CORPUSCULAR VOLUME 89.4 fL (80-94); MONOCYTES # (AUTO) 0.4 K/uL (0.8-1.0); MONOCYTES % (AUTO) 10.1 % (1.7-9.3); NEUTROPHILS # (AUTO) 2.7 K/uL (1.8-7.7); NEUTROPHILS % (AUTO) 65.8 % (42.2-75.2); PLATELET COUNT (AUTO) 281 K/uL (140-450); RED BLOOD CELL COUNT(AUTO) 2.45 MIL/uL (4.20-5.40); RED CELL DISTRIBUTION WIDTH 14.7 % (11.6-13.7); WHITE BLOOD COUNT (AUTO) 4.1 K/uL (4.8-10.8)
[2023-10-04 07:40] LABS: ALANINE AMINOTRANSFERASE 14 U/L (12-78); ALBUMIN 2.2 g/dL (3.4-5.0); ALKALINE PHOSPHATASE 88 U/L (50-136); ANION GAP 9.9 (8-16); ASPARTATE AMINOTRANSFERASE 13 U/L (15-37); CALCIUM 7.8 mg/dL (8.5-10.1); CARBON DIOXIDE 27.4 mmol/L (21-32); CHLORIDE 102 mmol/L (98-107); GLUCOSE 158 mg/dL (74-106); POTASSIUM 4.3 mmol/L (3.5-5.1); SODIUM SERUM 135 mmol/L (136-145); TOTAL BILIRUBIN 0.2 mg/dL (0.0-1.0); TOTAL PROTEIN, SERUM 6.6 g/dL (6.4-8.2); UREA NITROGEN, BLOOD 6 mg/dL (7-18)
[2023-10-04] MEDS: ASPIRIN 81 MG TAB.CHEW PO SCH (09:00)
[2023-10-04] MEDS: NIFEdipine 60 MG TABER PO SCH (09:00)
[2023-10-04] MEDS: carvediloL 12.5 MG TAB PO SCH (09:01)
[2023-10-04] MEDS: hydrALAZINE 25 MG TAB PO SCH (09:02)
[2023-10-04] MEDS: ENOXAPARIN 40 MG/0.4 ML SYR SUBQ SCH (09:03)
[2023-10-04] MEDS: LOSARTAN 50 MG TAB PO SCH (09:04)
[2023-10-04] MEDS: HYDROXYCHLOROQUINE 200 MG TAB PO SCH (09:23)
[2023-10-04 10:13] VITALS: PULSE 75; RESP 16; O2SAT 98
[2023-10-04 10:21] VITALS: BP 148/79; RESP 18; O2SAT 82
[2023-10-04] MEDS: COMPOSITE DRESSING TP SCH (12:59)
== END 2023-10-04 16:15 | disposition left against medical advice (07) | DRG 391 ==
LOC: MED 05:06 → MTU 11:39
PROVIDERS: ADMIT Internal Medicine; ATTEND Internal Medicine
DX: K52.9 Noninfective gastroenteritis and colitis, unspecified (principal); K68.2 Retroperitoneal fibrosis; E44.1 Mild protein-calorie malnutrition; I16.0 Hypertensive urgency; E11.9 Type 2 diabetes mellitus without complications; I10 Essential (primary) hypertension; D64.9 Anemia, unspecified; R59.9 Enlarged lymph nodes, unspecified; Z20.822 Contact with and (suspected) exposure to COVID-19; M06.9 Rheumatoid arthritis, unspecified; I35.0 Nonrheumatic aortic (valve) stenosis; Z88.8 Allergy status to other drugs, medicaments and biological substances; Z79.82 Long term (current) use of aspirin; Z79.899 Other long term (current) drug therapy; Z68.21 Body mass index [BMI] 21.0-21.9, adult; I77.6 Arteritis, unspecified
CPT/HCPCS: 36415; 80048; 80053; 81001; 82948; 83690; 85025; 85651; 87081; 87086; 93005; 96374; 96375; 96376; 97112; 97116; 97530; 99285; J1170; J1650; J1815; J1885; J2270; J2405; J2543; J3490; J7060; Q9967